=== PATIENT | male | born 1980 | race Two or more races ===

== ENCOUNTER 2020-07-20 23:10 | Emergency (ER) | payer MEDICAID ==
[~2020-07-20] VITALS: Ht 172.7 cm; Wt 91.0 kg
[2020-07-20] MEDS ORDERED: KETOROLAC 30MG/ML VIAL IV STA (23:29)
[2020-07-20] MEDS ORDERED: SODIUM CHLORIDE 0.9% 1,000 ML IV ONE (23:30)
[2020-07-20] MEDS ORDERED: HYDROCODONE/ACETAMINOPHEN 5/325MG TABLET PO ONE (23:30)
[2020-07-20] MEDS ORDERED: LIDOCAINE HCL/PF 1% 10 MG/ML 5ML VIAL IJ ONE (23:45)
[2020-07-21 00:26] LABS: *AMPHETAMINES SCREEN URINE NEGATIVE (NEGATIVE); *BARBITURATES SCREEN URINE NEGATIVE (NEGATIVE); *BENZODIAZEPINES SCREEN URINE NEGATIVE (NEGATIVE); *COCAINE SCREEN URINE PRESUMTIVE POSITIVE (NEGATIVE); CANNABINOID URINE SCREEN PRESUMTIVE POSITIVE (NEGATIVE); OPIATES URINE SCREEN NEGATIVE (NEGATIVE); PHENCYCLIDINE URINE SCREEN NEGATIVE (NEGATIVE)
[2020-07-21 00:27] LABS: METHADONE URINE SCREEN NEGATIVE (NEGATIVE)
[2020-07-21] MEDS ORDERED: CEPHALEXIN 250MG CAPSULE PO ONE (01:15)
[2020-07-21] MEDS ORDERED: SULFAMETHOXAZOLE/TRIMETHOPRIM 800/160MG TABLET PO ONE (01:15)
[2020-07-21 01:36] LABS: BASOPHILS % 0.8 % (0.0-2.0); EOSINOPHILS % 2.2 % (0.0-5.0); HEMATOCRIT. 39.5 % (42.0-52.0); HEMOGLOBIN. 13.4 g/dL (14.0-18.0); LYMPHOCYTES % 38.8 % (20.0-50.0); MEAN CORPUSCULAR HEMOGLOBIN 29.1 pg (28.0-32.0); MEAN CORPUSCULAR VOLUME 85.6 fL (80.0-94.0); MEAN PLATELET VOLUME 8.6 fl (7.4-10.4); MONOCYTES % 7.5 % (2.0-8.0); NEUTROPHILS % 50.7 % (40.0-76.0); PLATELET 306 x1000/uL (130-400); RED BLOOD CELL COUNT 4.62 mill/uL (4.7-6.1); RED CELL DISTRIBUTION WIDTH 13.3 % (11.6-14.6)
[2020-07-21 01:38] LABS: CHLORIDE 110 mEq/L (98-107)
[2020-07-21 02:56] VITALS: BP 129/74
== END 2020-07-21 02:58 | disposition home or self-care (01) ==
LOC: ER 23:10
DX: L03.113 Cellulitis of right upper limb (principal)
CPT/HCPCS: 36415; 71045; 80053; 80305; 85025; 96361; 96374; 99284; J1885; J3490; J7030; 80320; 84145; G0480

== ENCOUNTER 2023-04-21 08:37 | Emergency (ER) | payer MEDICAID ==
[~2023-04-21] VITALS: Ht 172.7 cm; Wt 97.5 kg
[2023-04-21 08:54] VITALS: BP 169/114; PULSE 87; RESP 16; TEMP 98.2; O2SAT 98
== END 2023-04-21 10:49 | disposition left against medical advice (07) ==
LOC: ER 08:37
DX: Z53.21 Procedure and treatment not carried out due to patient leaving prior to being seen by health care provider (principal)
CPT/HCPCS: 99281

== ENCOUNTER 2024-07-05 21:29 | Emergency (ER) | payer MEDICAID, OTHER ==
[~2024-07-05] VITALS: Ht 167.6 cm; Wt 100.0 kg
[2024-07-05 21:49] VITALS: O2SAT 96
[2024-07-06 01:12] VITALS: TEMP 97.8
[2024-07-06] MEDS: ACETAMINOPHEN 325MG TABLET PO ONE (01:12)
[2024-07-06] MEDS: KETOROLAC 30MG/ML VIAL IM ONE (01:13)
[2024-07-06] MEDS: LIDOCAINE 5% PATCH TOP SCH (01:18)
[2024-07-06] MEDS ORDERED: ACET-2708 MT (01:33)
[2024-07-06] MEDS ORDERED: LIDO700A30 TP (01:33)
[2024-07-06] MEDS ORDERED: METH-653 MT (01:33)
[2024-07-06] MEDS ORDERED: IBUP-2028 MT (01:33)
[2024-07-06 02:09] VITALS: BP 150/84; PULSE 54; RESP 16; O2SAT 97
== END 2024-07-06 02:26 | disposition home or self-care (01) ==
LOC: ER 21:29
DX: M25.511 Pain in right shoulder (principal); F19.90 Other psychoactive substance use, unspecified, uncomplicated
CPT/HCPCS: 99283; 73030; J1885

== ENCOUNTER 2024-07-18 14:45 | Emergency (ER) | payer MEDICAID ==
[~2024-07-18] VITALS: Ht 172.7 cm; Wt 100.0 kg
[~2024-07-18 14:45] MED LIST: ACET-2708 MT; IBUP-2028 MT; LIDO700A30 TP; METH-653 MT
[2024-07-18 14:46] VITALS: O2SAT 98
[2024-07-18 15:07] VITALS: BP 151/88; PULSE 102; RESP 16; TEMP 98.5; O2SAT 100
[2024-07-18] MEDS ORDERED: OFLO5DRO4 LEFT EAR (16:11)
== END 2024-07-18 16:28 | disposition home or self-care (01) ==
LOC: ER 14:45
DX: H60.92 Unspecified otitis externa, left ear (principal)
CPT/HCPCS: 99283